=== PATIENT | male | born 1990 | race African-American/Black ===

== ENCOUNTER 2017-03-22 17:35 | Emergency (ER) | payer SELFPAY ==
[2017-03-22 17:45] VITALS: O2SAT 99
[2017-03-22] MEDS ORDERED: TORAdol 30 mg Injection IM ONE (17:51)
[2017-03-22] MEDS ORDERED: TORAdol 30 mg Injection ONE (17:53)
--- NOTE | 2017-03-22 17:57 | ERPHSYRPT ---
- History of Present Illness Time Seen by Provider: 03/22/17 17:37 Source: patient Patient Subjective Stated Complaint: "For the past couple of days my lower back has been hurting me. I work at [employer] and am lifting quite a bit of stuff." Triage Nursing Assessment: Pt alert and oriented X 3, skin pwd pt ambulates without difficulty, able to speak in full sentences. pt ambulates with an upright gait Physician History: CC: back pain Hx: 26 y/o healthy patient with no local doctor. He has low back pain radiating to both legs since Wednesday (3 days). Some tingling in both upper legs. Normal urination. No fever, chills or hx of CA. No specific injury, awoke with pain, worse with repetitive movements at work. He had prior back pain after football injury remotely at which time he had normal xrays. No chest or abd pain. Sometimes constipation. Timing/Duration: day(s) (3) Method of Injury: unknown Back Pain Location: lumbar spine Severity of Pain-Max: moderate Severity of Pain-Current: moderate Allergies/Adverse Reactions: No Known Drug Allergies Allergy (Verified 03/22/17 17:45) Hx Tetanus, Diphtheria Vaccination/Date Given: Yes Hx Influenza Vaccination/Date Given: No Hx Pneumococcal Vaccination/Date Given: No Immunizations Up to Date: Yes - Review of Systems Constitutional: No Fever, No Chills Eyes: No Symptoms Ears, Nose, & Throat: No Symptoms Respiratory: No Cough Cardiac: No Chest Pain Abdominal/Gastrointestinal: No Abdominal Pain Genitourinary Symptoms: No Dysuria, No Flank Pain, No Testicle Pain Musculoskeletal: Back Pain, No Fall, No Injury Neurological: No Focal Weakness, No Headache, No Parasthesia All Other Systems: Reviewed and Negative - Past Medical History Pertinent Past Medical History: No - Past Surgical History Past Surgical History: Yes Other Surgical History: T&A - Social History Smoking Status: Never smoker How long have you smoked: 3 Exposure to second hand smoke: Yes Drug Use: none Patient Lives Alone: No (works [employer]) - Nursing Vital Signs Nursing Vital Signs: Initial Vital Signs Temperature 97.8 F 03/22/17 17:39 Pulse Rate 60 03/22/17 17:39 Respiratory Rate 18 03/22/17 17:39 Blood Pressure 120/73 03/22/17 17:39 O2 Sat by Pulse Oximetry 99 08/21/17 17:39 Pain Scale Pain Intensity [Back] 8 Pain Intensity 8 - Physical Exam General Appearance: alert Eye Exam: PERRL/EOMI Ears, Nose, Throat Exam: normal ENT inspection, moist mucous membranes Neck Exam: normal inspection, non-tender, supple Respiratory Exam: normal breath sounds Cardiovascular Exam: regular rate/rhythm, No murmur, No pulse deficit Gastrointestinal Exam: soft, No tenderness, No distention, No mass, No guarding Male Genetalia Exam: normal genitalia, No testicular tenderness Back Exam: normal inspection, other (diffuse low discomfort), No vertebral tenderness Extremity Exam: normal inspection, normal range of motion Neurologic Exam: alert, oriented x 3, cooperative, 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 Needs work note for tonite. Rx motrin and norflex. Back pain instr given. Counseled pt/family regarding: diagnosis, need for follow-up - Departure Time of Disposition: 17:57 Departure Disposition: Home Clinical Impression: Lumbago Qualifiers: Chronicity: acute Back pain laterality: bilateral Sciatica presence: without sciatica Qualified Code(s): M54.5 - Low back pain Condition: Stable Critical Care Time: No Referrals: DOCTOR,NO FAMILY [Primary Care Provider] - Instructions: Low Back Pain Additional Instructions: BACK INJURY 1. May apply moist heat frequently for relief of pain. Take care not to burn the skin. Do not use heat for more than 30 minutes at a time. 2. Try to sleep on a firm bed, flat on your back. 3. If no improvement is noticed in 2-3 days, follow up with your family physician. 4. If you notice any numbness, tingling, weakness, or problems with your bowel or bladder, you should call your family physician or return to the emergency department. Rx norflex- no driving or operating machinery while taking. Work note for tonite. Rx motrin=ibuprofen. Follow up with a family doctor in 4-5 days if not better. Prescriptions: Ibuprofen 600 mg PO Q6H PRN PRN #24 tablet PRN Reason: Pain Orphenadrine Citrate 100 mg [Norflex 100 MG Tablet] 1 tab PO BID #10 tab
[2017-03-22 18:17] VITALS: BP 123/60; PULSE 61
== END 2017-03-22 18:19 | disposition home or self-care (01) ==
LOC: ED 17:35
DX: M54.5 Low back pain (principal)
CPT/HCPCS: 96372; 99283; 99284; J1885